=== PATIENT | female | born 1950 | race Caucasian/White ===

== ENCOUNTER 2022-09-27 14:58 | Emergency (ER) | payer MEDICARE, OTHER ==
[2022-09-27] MEDS ORDERED: Lidocaine 1% 5 ML VIAL INJECT ONE (16:18)
[2022-09-27 18:13] VITALS: BP 161/86; PULSE 60
== END 2022-09-27 18:12 | disposition home or self-care (01) ==
LOC: MW.ED 14:58
DX: S52.531A Colles' fracture of right radius, initial encounter for closed fracture (principal); I10 Essential (primary) hypertension; Z79.82 Long term (current) use of aspirin; W19.XXXA Unspecified fall, initial encounter
CPT/HCPCS: 25605; 29125; 73100-26-RT; 73100-RT; 73110-26-RT; 73110-RT; 99283; 99283-25; J3490

== ENCOUNTER 2023-09-18 19:28 | Emergency (ER) | payer MEDICARE, OTHER ==
[2023-09-18] MEDS ORDERED: Sodium Chloride 0.9% 10 ML Syringe FLUSH PRN (19:35)
[2023-09-18] MEDS ORDERED: Sodium Chloride 0.9% 2.5 ML Syringe FLUSH PRN (19:35)
[2023-09-18] MEDS ORDERED: Sodium Chloride 0.9% 2,000 ML IV ONE (19:37)
[2023-09-18 20:02] LABS: BASOPHILS ABSOLUTE AUTO 0.01 K/uL (0.00-0.20); BASOPHILS PERCENT AUTO 0.1 % (0.0-1.0); HEMATOCRIT 30.7 % (37.0-47.0); HEMOGLOBIN 10.9 g/dL (12.0-16.0); IMMATURE GRAN ABSOLUTE AUTO 0.08 K/uL (0.00-0.05); IMMATURE GRAN PERCENT AUTO 0.5 % (0.0-0.4); LYMPHOCYTES ABSOLUTE AUTO 0.89 K/uL (1.00-4.80); MEAN CORPUSCULAR HEMOGLOBIN 32.6 pg (28.0-32.0); MEAN CORPUSCULAR HGB CONC 35.5 g/dL (32.0-36.0); MEAN CORPUSCULAR VOLUME 91.9 fL (83.0-99.0); MONOCYTES ABSOLUTE AUTO 0.88 K/uL (0.00-0.80); MONOCYTES PERCENT AUTO 5.9 % (0.0-8.0); NEUTROPHILS ABSOLUTE AUTO 12.96 K/uL (1.80-7.70); NEUTROPHILS PERCENT AUTO 87.5 % (41.0-71.0); PLATELET COUNT,PLT 236 K/uL (150-400); RED BLOOD CELL COUNT 3.34 M/uL (4.10-5.30); WHITE BLOOD CELL COUNT,WBC 14.82 K/uL (3.9-11.3)
[2023-09-18] MEDS ORDERED: Iopamidol 755 MG/ML 500 ML Multipack Bottle IVPUSH ONE (20:12)
[2023-09-18 20:13] LABS: INR 1.07 (0.86-1.11)
[2023-09-18 20:29] LABS: A/G RATIO 1.2 (0.9-1.6); ALBUMIN 3.6 g/dL (3.4-5.0); BILIRUBIN TOTAL 0.5 mg/dL (0.2-1.0); CALCIUM 9.1 mg/dL (8.5-10.1); CARBON DIOXIDE,CO2 24.8 mmol/L (21.0-32.0); CREATININE 0.9 mg/dL (0.6-1.0); EST CRCL DRUG DOSING (CG) 53.33 mL/min; POTASSIUM,K 3.6 mmol/L (3.5-5.1); PROTEIN TOTAL,TP 6.5 g/dL (6.4-8.2)
[2023-09-18 23:12] LABS: A/G RATIO 1.2 (0.9-1.6); ALBUMIN 3.1 g/dL (3.4-5.0); BILIRUBIN TOTAL 0.5 mg/dL (0.2-1.0); CARBON DIOXIDE,CO2 27.7 mmol/L (21.0-32.0); CREATININE 0.7 mg/dL (0.6-1.0); EST CRCL DRUG DOSING (CG) 68.57 mL/min; POTASSIUM,K 3.6 mmol/L (3.5-5.1); PROTEIN TOTAL,TP 5.7 g/dL (6.4-8.2)
[2023-09-19 04:50] VITALS: BP 126/71; PULSE 87
== END 2023-09-19 02:09 ==
LOC: MW.ED 19:28
DX: S72.491A Other fracture of lower end of right femur, initial encounter for closed fracture (principal); T68.XXXA Hypothermia, initial encounter; I10 Essential (primary) hypertension; Z79.899 Other long term (current) drug therapy; Z79.82 Long term (current) use of aspirin; W18.30XA Fall on same level, unspecified, initial encounter; Y93.K1 Activity, walking an animal
CPT/HCPCS: 36415; 51702; 70450; 71260; 72125; 73552; 73560; 73590; 74177; 80053; 82550; 84484; 85025; 85610; 93005; 96360; 96361; 99285; J3490; J7030; Q9967; 93010

== ENCOUNTER 2024-11-10 13:10 | Inpatient (IN) | payer MEDICARE, OTHER ==
[2024-11-10 15:00] LABS: BASOPHILS ABSOLUTE AUTO 0.01 K/uL (0.00-0.20); BASOPHILS PERCENT AUTO 0.1 % (0.0-1.0); EOSINOPHILS ABSOLUTE AUTO 0.01 K/uL (0.00-0.45); EOSINOPHILS PERCENT AUTO 0.1 % (0.0-6.0); HEMATOCRIT 36.8 % (37.0-47.0); HEMOGLOBIN 13.1 g/dL (12.0-16.0); IMMATURE GRAN ABSOLUTE AUTO 0.03 K/uL (0.00-0.05); IMMATURE GRAN PERCENT AUTO 0.3 % (0.0-0.4); LYMPHOCYTES ABSOLUTE AUTO 0.42 K/uL (1.00-4.80); LYMPHOCYTES PERCENT AUTO 4.1 % (24.0-44.0); MEAN CORPUSCULAR HEMOGLOBIN 31.8 pg (28.0-32.0); MEAN CORPUSCULAR HGB CONC 35.6 g/dL (32.0-36.0); MEAN CORPUSCULAR VOLUME 89.3 fL (83.0-99.0); MEAN PLATELET VOLUME 8.3 fL (9.4-12.3); MONOCYTES ABSOLUTE AUTO 0.47 K/uL (0.00-0.80); MONOCYTES PERCENT AUTO 4.6 % (0.0-8.0); NEUTROPHILS ABSOLUTE AUTO 9.32 K/uL (1.80-7.70); NEUTROPHILS PERCENT AUTO 90.8 % (41.0-71.0); PLATELET COUNT,PLT 270 K/uL (150-400); RED BLOOD CELL COUNT 4.12 M/uL (4.10-5.30); WHITE BLOOD CELL COUNT,WBC 10.26 K/uL (3.9-11.3)
[2024-11-10 15:19] LABS: CALCIUM 9.4 mg/dL (8.5-10.1); CARBON DIOXIDE,CO2 30.5 mmol/L (21.0-32.0); CREATININE 0.7 mg/dL (0.6-1.0); EST CRCL DRUG DOSING (CG) 67.53 mL/min; MAGNESIUM 1.7 mg/dL (1.8-2.4); POTASSIUM,K 2.9 mmol/L (3.5-5.1)
[2024-11-10] MEDS ORDERED: Naloxone 0.4 MG/ML SDV IVPUSH PRN (15:19)
[2024-11-10] MEDS ORDERED: Sodium Chloride 0.9% 2.5 ML Syringe FLUSH PRN (15:19)
[2024-11-10] MEDS ORDERED: Morphine 2 MG/ML SYRINGE IVPUSH PRN (15:19)
[2024-11-10] MEDS ORDERED: Polyethylene Glycol 3350 Powder 17 GM Packet PO PRN (15:19)
[2024-11-10] MEDS ORDERED: Sodium Chloride 0.9% 10 ML Syringe FLUSH PRN (15:19)
[2024-11-10 15:29] LABS: INR 1.03 (0.86-1.11); PTT,PARTIAL THROMBOPLSTIN TIME 28.8 SEC (23.9-30.7)
[2024-11-10] MEDS: Magnesium Sulf/Wat 2 GM/50 mL 2 GM in Premix Bag 1 BAG IV ONE (16:30)
[2024-11-10] MEDS: NS with KCl 40mEq 1,000 ML IV ONE (16:30)
[2024-11-10] MEDS: Potassium Chloride 20 MEQ Tab.ER PO SCH (16:34)
[2024-11-10] MEDS ORDERED: Ondansetron 4 MG/2 ML SDV IVPUSH PRN (18:34)
[2024-11-10 18:53] LABS: APPEARANCE,URINE CLEAR; BILIRUBIN,URINE NEGATIVE (NEGATIVE); COLOR,URINE YELLOW; GLUCOSE,URINE NEGATIVE (NEGATIVE); KETONES,URINE 15 mg/dL (NEGATIVE); LEUKOCYTE ESTERASE,URINE NEGATIVE (NEGATIVE); NITRITE,URINE NEGATIVE (NEGATIVE); OCCULT BLOOD,URINE SMALL (NEGATIVE); PROTEIN,URINE NEGATIVE (NEGATIVE); UROBILINOGEN,URINE 0.2 EU/dL (<2.0)
[2024-11-10 19:00] LABS: BACTERIA,URINE NOT SEEN (NEGATIVE); EPITHELIAL CELLS,URINE NOT SEEN (NONE-FEW); WBC,URINE 0-1 (0-5/HPF)
[2024-11-10] MEDS ORDERED: Melatonin 3 MG Tab PO PRN (21:00)
[2024-11-10] MEDS: Docusate Sodium 100 MG Cap PO SCH (21:54)
[2024-11-10] MEDS: Montelukast 10 MG Tab PO SCH (21:54)
[2024-11-10 23:18] LABS: CALCIUM 8.8 mg/dL (8.5-10.1); CARBON DIOXIDE,CO2 27.8 mmol/L (21.0-32.0); CREATININE 0.8 mg/dL (0.6-1.0); EST CRCL DRUG DOSING (CG) 59.09 mL/min; POTASSIUM,K 4.3 mmol/L (3.5-5.1)
[2024-11-10] MEDS: Acetaminophen 325 MG Tab PO PRN (23:42)
[2024-11-11] MEDS: Sodium Chloride 0.9% 1,000 ML IV SCH (01:31)
[2024-11-11 05:41] LABS: BASOPHILS ABSOLUTE AUTO 0.01 K/uL (0.00-0.20); BASOPHILS PERCENT AUTO 0.1 % (0.0-1.0); HEMATOCRIT 31.6 % (37.0-47.0); HEMOGLOBIN 11.1 g/dL (12.0-16.0); IMMATURE GRAN ABSOLUTE AUTO 0.01 K/uL (0.00-0.05); IMMATURE GRAN PERCENT AUTO 0.1 % (0.0-0.4); LYMPHOCYTES ABSOLUTE AUTO 0.47 K/uL (1.00-4.80); LYMPHOCYTES PERCENT AUTO 6.7 % (24.0-44.0); MEAN CORPUSCULAR HEMOGLOBIN 31.7 pg (28.0-32.0); MEAN CORPUSCULAR HGB CONC 35.1 g/dL (32.0-36.0); MEAN CORPUSCULAR VOLUME 90.3 fL (83.0-99.0); MEAN PLATELET VOLUME 8.7 fL (9.4-12.3); MONOCYTES ABSOLUTE AUTO 0.36 K/uL (0.00-0.80); MONOCYTES PERCENT AUTO 5.2 % (0.0-8.0); NEUTROPHILS ABSOLUTE AUTO 6.12 K/uL (1.80-7.70); NEUTROPHILS PERCENT AUTO 87.9 % (41.0-71.0); PLATELET COUNT,PLT 242 K/uL (150-400); WHITE BLOOD CELL COUNT,WBC 6.97 K/uL (3.9-11.3)
[2024-11-11 06:03] LABS: CALCIUM 7.8 mg/dL (8.5-10.1); CARBON DIOXIDE,CO2 23.8 mmol/L (21.0-32.0); CREATININE 0.8 mg/dL (0.6-1.0); EST CRCL DRUG DOSING (CG) 59.09 mL/min; MAGNESIUM 2.2 mg/dL (1.8-2.4); POTASSIUM,K 4.5 mmol/L (3.5-5.1)
[2024-11-11] MEDS: Calcium Carbonate/Vitamin D3 1500 MG-400 Units Tab PO SCH (08:07)
[2024-11-11] MEDS: Fish Oil/Omega-3 Fatty Acids 1 Gm Cap PO SCH (08:07)
[2024-11-11] MEDS: Ascorbic Acid 500 MG Tab PO SCH (08:08)
[2024-11-11] MEDS: Multivitamin Tab PO SCH (08:08)
[2024-11-11] MEDS ORDERED: Hydrochlorothiazide 25 MG Tab PO SCH (09:00)
[2024-11-11] MEDS ORDERED: fentaNYL 50 MCG/ML SDV IVPUSH PRN (10:28)
[2024-11-11] MEDS ORDERED: Metoclopramide 10 MG/2 ML SDV IVPUSH PRN (10:28)
[2024-11-11] MEDS ORDERED: Naloxone 0.4 MG/ML SDV IVPUSH PRN (10:28)
[2024-11-11] MEDS ORDERED: Phenylephrine HCl In 0.9% NaCl 1 MG/10 ML Syringe IVPUSH PRN (10:28)
[2024-11-11] MEDS ORDERED: Morphine 2 MG/ML SYRINGE IVPUSH PRN (10:28)
[2024-11-11] MEDS ORDERED: Ondansetron 4 MG/2 ML SDV IVPUSH PRN (10:28)
[2024-11-11] MEDS ORDERED: HYDROmorphone 1 MG/ML Syringe IVPUSH PRN (10:28)
[2024-11-11] MEDS ORDERED: Albuterol 0.083% 2.5 MG/3 ML Neb Soln NEB PRN (10:28)
[2024-11-11 10:44] LABS: CALCIUM 8.3 mg/dL (8.5-10.1); CARBON DIOXIDE,CO2 27.5 mmol/L (21.0-32.0); CREATININE 0.7 mg/dL (0.6-1.0); EST CRCL DRUG DOSING (CG) 67.53 mL/min; POTASSIUM,K 4.5 mmol/L (3.5-5.1)
[2024-11-11] MEDS ORDERED: propofoL 500 MG/50 ML 50 ML ONE ×2 (10:59→14:16)
[2024-11-11] MEDS ORDERED: Ketamine HCL/NACL, ISO-OSM 50 MG/5 ML Syringe ONE ×2 (11:00→11:34)
[2024-11-11] MEDS ORDERED: Ropivacaine 49.25 ML, Ketorolac 30 MG, EPINEPHrine 0.5 MG, cloNIDine 80 MCG in Sodium C... INJECT SCH ×2 (11:00)
[2024-11-11] MEDS ORDERED: dexmedeTOMIDine HCl 200 MCG/2 ML SDV ONE (11:01)
[2024-11-11] MEDS ORDERED: fentaNYL 100 MCG/2 ML SDV ONE (11:03)
[2024-11-11] MEDS ORDERED: ceFAZolin 2 GM in Sodium Chloride 0.9% 50 ML IV SCH (12:00)
[2024-11-11] MEDS ORDERED: ceFAZolin 2 GM Vial ONE (12:32)
[2024-11-11] MEDS ORDERED: Tranexamic Acid 1,000 MG/10 ML Vial ONE (12:44)
[2024-11-11] MEDS ORDERED: Dexamethasone 4 MG/ML 5 ML MDV ONE (12:50)
[2024-11-11] MEDS ORDERED: Ondansetron 4 MG/2 ML SDV ONE (12:50)
[2024-11-11] MEDS ORDERED: EPINEPHrine 1 MG/1 ML Amp ONE (12:51)
[2024-11-11] MEDS ORDERED: ePHEDrine 50 MG/ML SDV ONE (14:22)
[2024-11-11] MEDS ORDERED: diphenhydrAMINE 25 MG Cap PO PRN (16:28)
[2024-11-11] MEDS ORDERED: traMADol 50 MG Tab PO PRN ×2 (16:28)
[2024-11-11] MEDS ORDERED: oxyCODONE 5 MG Tab PO PRN ×2 (16:28)
[2024-11-11] MEDS: Tranexamic Acid in NACL,ISO-OS 1,000 MG in Premix Bag 1 BAG IV ONE (17:18)
[2024-11-11] MEDS: Acetaminophen 325 MG Tab PO SCH (17:48)
[2024-11-11 20:22] LABS: CALCIUM 7.7 mg/dL (8.5-10.1); EST CRCL DRUG DOSING (CG) 47.27 mL/min; POTASSIUM,K 4.1 mmol/L (3.5-5.1)
[2024-11-11] MEDS: ceFAZolin 2 GM in Sodium Chloride 0.9% 50 ML IV SCH (20:55)
[2024-11-11] MEDS: Ketorolac 30 MG/ML SDV IVPUSH SCH (20:57)
[2024-11-11] MEDS: Aspirin 325 MG Tab PO SCH (21:05)
[2024-11-12 06:10] LABS: HEMATOCRIT 27.4 % (37.0-47.0); HEMOGLOBIN 9.2 g/dL (12.0-16.0); IMMATURE GRAN ABSOLUTE AUTO 0.05 K/uL (0.00-0.05); IMMATURE GRAN PERCENT AUTO 0.5 % (0.0-0.4); LYMPHOCYTES ABSOLUTE AUTO 0.55 K/uL (1.00-4.80); LYMPHOCYTES PERCENT AUTO 5.9 % (24.0-44.0); MEAN CORPUSCULAR HEMOGLOBIN 31.7 pg (28.0-32.0); MEAN CORPUSCULAR HGB CONC 33.6 g/dL (32.0-36.0); MEAN CORPUSCULAR VOLUME 94.5 fL (83.0-99.0); MONOCYTES ABSOLUTE AUTO 0.63 K/uL (0.00-0.80); MONOCYTES PERCENT AUTO 6.7 % (0.0-8.0); NEUTROPHILS ABSOLUTE AUTO 8.17 K/uL (1.80-7.70); NEUTROPHILS PERCENT AUTO 86.9 % (41.0-71.0); PLATELET COUNT,PLT 212 K/uL (150-400)
[2024-11-12 06:33] LABS: CALCIUM 7.8 mg/dL (8.5-10.1); CARBON DIOXIDE,CO2 22.6 mmol/L (21.0-32.0); CREATININE 0.7 mg/dL (0.6-1.0); EST CRCL DRUG DOSING (CG) 67.53 mL/min
[2024-11-12] MEDS: Celecoxib 100 MG Cap PO SCH (09:04)
[2024-11-12] MEDS: Sodium Chloride 1 GM Tab PO SCH (12:05)
[2024-11-13 05:47] LABS: BASOPHILS ABSOLUTE AUTO 0.01 K/uL (0.00-0.20); BASOPHILS PERCENT AUTO 0.2 % (0.0-1.0); EOSINOPHILS ABSOLUTE AUTO 0.03 K/uL (0.00-0.45); EOSINOPHILS PERCENT AUTO 0.5 % (0.0-6.0); HEMATOCRIT 27.5 % (37.0-47.0); HEMOGLOBIN 9.4 g/dL (12.0-16.0); IMMATURE GRAN ABSOLUTE AUTO 0.01 K/uL (0.00-0.05); IMMATURE GRAN PERCENT AUTO 0.2 % (0.0-0.4); LYMPHOCYTES ABSOLUTE AUTO 1.29 K/uL (1.00-4.80); LYMPHOCYTES PERCENT AUTO 19.5 % (24.0-44.0); MEAN CORPUSCULAR HGB CONC 34.2 g/dL (32.0-36.0); MEAN CORPUSCULAR VOLUME 93.5 fL (83.0-99.0); MONOCYTES ABSOLUTE AUTO 0.55 K/uL (0.00-0.80); MONOCYTES PERCENT AUTO 8.3 % (0.0-8.0); NEUTROPHILS ABSOLUTE AUTO 4.71 K/uL (1.80-7.70); NEUTROPHILS PERCENT AUTO 71.3 % (41.0-71.0); PLATELET COUNT,PLT 223 K/uL (150-400); RED BLOOD CELL COUNT 2.94 M/uL (4.10-5.30)
[2024-11-13 06:06] LABS: CALCIUM 8.1 mg/dL (8.5-10.1); CARBON DIOXIDE,CO2 25.5 mmol/L (21.0-32.0); CREATININE 0.7 mg/dL (0.6-1.0); EST CRCL DRUG DOSING (CG) 67.53 mL/min; POTASSIUM,K 4.6 mmol/L (3.5-5.1)
[2024-11-13 12:02] VITALS: BP 141/65; PULSE 65
== END 2024-11-13 14:08 | disposition home or self-care (01) | DRG 522 ==
LOC: MW.ED 13:10 → MW.MS 14:42
PROVIDERS: ADMIT Internal Medicine; ATTEND Internal Medicine
PROC: 0SP904Z Removal of Internal Fixation Device from Right Hip Joint, Open Approach (ICD-10-PCS; 2024-11-11)
PROC: 0SR9069 Replacement of Right Hip Joint with Oxidized Zirconium on Polyethylene Synthetic Substitute, Cemented, Open Approach (ICD-10-PCS; principal; 2024-11-11 12:15)
DX: S72.011A Unspecified intracapsular fracture of right femur, initial encounter for closed fracture (principal); S72.001A Fracture of unspecified part of neck of right femur, initial encounter for closed fracture; E87.1 Hypo-osmolality and hyponatremia; I10 Essential (primary) hypertension; E78.00 Pure hypercholesterolemia, unspecified; Z79.2 Long term (current) use of antibiotics; Z75.8 Other problems related to medical facilities and other health care; M19.90 Unspecified osteoarthritis, unspecified site; G89.29 Other chronic pain; F15.90 Other stimulant use, unspecified, uncomplicated; M85.80 Other specified disorders of bone density and structure, unspecified site; M54.41 Lumbago with sciatica, right side; E87.6 Hypokalemia; E83.42 Hypomagnesemia; S05.11XA Contusion of eyeball and orbital tissues, right eye, initial encounter; W10.9XXA Fall (on) (from) unspecified stairs and steps, initial encounter; Z79.82 Long term (current) use of aspirin; Z79.899 Other long term (current) drug therapy; Z98.890 Other specified postprocedural states; Z87.81 Personal history of (healed) traumatic fracture; Y93.89 Activity, other specified; Y92.009 Unspecified place in unspecified non-institutional (private) residence as the place of occurrence of the external cause
CPT/HCPCS: 36415; 70450; 70450-26; 71045; 71045-26; 73501-26-RT; 73501-RT; 73502-26-RT; 73502-RT; 73552-26-LT; 73552-RT; 80048; 81001; 82947; 83735; 85025; 85610; 85730; 86850; 86900; 86901; 93005; 97162-GP; 97530-GP; 99285; A9270-GY; C1713; J0131; J0690; J0735; J1100; J1885; J2405; J2704; J2795; J3010; J3475; J3480; J3490; J7030